=== PATIENT | female | born 1960 | race Caucasian/White ===

== ENCOUNTER 2024-11-04 09:50 | Emergency (ER) | payer MEDICARE, SELFPAY ==
[2024-11-04 09:51] VITALS: BP 143/90; PULSE 119; PULSE 122; RESP 16; TEMP 37.2; O2SAT 98; BMI 29.7
--- NOTE | 2024-11-04 10:07 | EX.ED.DYSGE1 ---
HPI History of Present Illness Chief Complaint: Cold Sx Detail of Chief Complaint: Cold symptoms Informant: patient Narrative Narrative: Patient presents to the emergency department with complaint of cold symptoms that started 3 days ago. Patient tells me that her was seen in the emergency department 3 days ago and diagnosed with COVID and was started on Paxlovid because he is asplenic and has other medical issues. Patient did not have symptoms at that time but that evening developed some congestion and low-grade fever. Patient denies shortness of breath. She denies chest pain. Mild headache. Denies body aches. Patient has had her COVID booster in July of this year. Patient has had COVID before and had been on Paxlovid in the past and she tolerated well. She does not take any medications. Patient states that she was just nervous and scared and did not know if she needed to be on Paxlovid. PFSH PFSH Allergy/AdvReac Type Severity Reaction Status Date / Time doxycycline Allergy Diarrhea Verified 11/04/24 09:53 Penicillins (PCN) Allergy N/V Verified 11/04/24 09:53 Social History Smoking Status: Never smoker ROS ROS ED Review of Systems ROS Unobtainable: other Constitutional Constitutional ED: Reports fever(s); Denies chills, lethargy, sweats or weight loss Eyes Eyes: Denies blurry vision, change in vision or diplopia ENT ENT ED: Denies rhinorrhea or sore throat Cardiovascular Cardiovascular: Denies chest pain, orthopnea or racing heartbeat Respiratory/Chest Respiratory/Chest: Reports cough; Denies dyspnea, dyspnea on exertion, orthopnea or sputum Gastrointestinal Gastrointestinal: Denies abdominal pain, diarrhea, nausea or vomiting Genitourinary Genitourinary ED: Denies dysuria, hematuria or urinary frequency Musculoskeletal Musculoskeletal: Denies arthralgias, back pain, myalgias or neck pain Integumentary Denies abscess, Abrasions or rash Neurologic Neurologic: Denies headache(s) or weakness Psychiatric Psychiatric: Denies anxiety, depression or suicidal thoughts Endocrine Endocrinology: Denies polydipsia, polyphagia or polyuria Hematologic/Lymphatic Hematologic/Lymphatic: Denies easy bleeding, easy bruising or lymphadenopathy Allergic/Immunologic Allergic/Immunologic ED: Denies mouth swelling, tongue swelling or urticaria EXAM Physical Exam Const Vital Signs: 11/04/24 09:51 11/04/24 09:51 11/04/24 10:05 Temperature 99 F Temperature Source Temporal Pulse Rate 122 H 119 H Respiratory Rate 16 Respiratory Effort Normal Non-Labored Respiratory Pattern Normal Blood Pressure 143/90 H Blood Pressure Mean 107 Pulse Ox 98 Oxygen Delivery Method Room Air Positive well nourished and well developed General Appearance ED: well developed and NAD HEENT Reports TM's clear and moist mucous membranes normocephalic and atraumatic; Negative for trauma or tenderness Tympanic Membrane ED: Yes TM's clear Eyes PERRL and EOMs intact bilaterally General Eye ED: Negative for pale conjunctiva or scleral icterus Neck no lymphadenopathy, supple and no JVD General: Negative for tenderness Chest Wall inspection of chest normal and palpation of chest normal Chest: Negative for tenderness Resp normal respiratory effort and clear to auscultation bilaterally Effort and Inspection: Negative for respiratory distress or pain with movement Auscultation: Negative for rhonchi, wheezes or diminished lung sounds Cardio regular rhythm, S1 normal heart sound, S2 normal heart sound and no murmurs Rate: tachycardic Peripheral Pulses: pulses 2+ throughout GI normal to inspection, nondistended, normoactive bowel sounds, soft to palpation, non-tender, non-distended and no masses Back/Spine no CVA tenderness and no thoracic nor lumbar tenderness Extremity normal to inspection General Extremety ED: Negative for edema General Extremity: Negative for edema Neuro oriented x3, CN's II-XII intact bilaterally, no sensory deficits noted and gait normal Sensorium / Orientation: awake, alert, oriented to person, oriented to place and oriented to time Motor Exam: strength 5/5 throughout and strength abnormal Psych mental status grossly normal Skin no rashes or lesions noted and no wounds MDM MDM MDM Narrative Medical decision making narrative: Patient presents with concern for COVID-19. Clinically she looks well other than some mild tachycardia stable vital signs. We had shared decision making. I did offer to perform COVID flu and RSV testing although given her complaints and the fact that her recently diagnosed with COVID-19 she likely has COVID. I did offer her Paxlovid however did not feel strongly that we had to treat at this time given that she has no significant medical conditions and has had COVID-vaccine. Vital signs stable. Patient feels comfortable foregoing COVID flu and RSV testing and foregoing Paxlovid treatment. I certainly think this is reasonable and recommended symptomatic treatment with Motrin or Tylenol for fever control and bodyaches as well as pushing fluids. Advised to return if increasing shortness of breath, purulent sputum, or condition should worsen anyway. Discharge Plan Triage Chief Complaint: Cold Sx ED Provider: Mary Anne Valdovinos Dx/Rx/DC Orders Clinical Impression: Viral URI Instructions: ED URI, Viral, No Abx (Adult) Activity Restrictions/Additional Instructions: Follow-up with primary care physician within next 5 to 7 days. Print Language: Romanian Disposition Disposition: Home, Self Care
== END 2024-11-04 10:22 | disposition home or self-care (01) ==
PROVIDERS: Emergency Provider Emergency Medicine; PCP Internal Medicine; Visit Provider Emergency Medicine
DX: J06.9 Acute upper respiratory infection, unspecified (principal); R51.9 Headache, unspecified; Z86.16 Personal history of COVID-19
CPT/HCPCS: 99282